=== PATIENT | female | born 1995 | race African-American/Black ===

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

== ENCOUNTER 2017-06-12 04:45 | Emergency (ER) | payer OTHER ==
[2017-06-12] MEDS ORDERED: IBUPROFEN 400 MG TABLET. PO ×2 (05:20→05:30)
[2017-06-12] MEDS: ONDANSETRON ODT 4 MG TAB.RAPDIS. PO (05:24)
[2017-06-12] MEDS ORDERED: CEPHALEXIN 250 MG CAPSULE. PO (05:30)
[2017-06-12] MEDS ORDERED: IBUPROFEN 800 MG TABLET. PO (05:30)
[2017-06-12] MEDS ORDERED: PENICILLIN G BENZATHINE LA 1,200,000 UNIT/2 ML DISP.SYRIN. IM (06:00)
[2017-06-13 07:11] LABS: URINE HCG POC HCG NEGATIVE (Negative)
== END 2017-06-12 05:30 | disposition home or self-care (01) ==
LOC: ER 04:45
DX: B34.9 Viral infection, unspecified (principal); J40 Bronchitis, not specified as acute or chronic; Z88.6 Allergy status to analgesic agent
CPT/HCPCS: 81025; 99283; Q0162

== ENCOUNTER 2017-09-22 09:49 | Emergency (ER) | payer OTHER | END 2017-09-22 10:11 | disposition left against medical advice (07) | LOC: ER 09:49 | DX: R10.30 Lower abdominal pain, unspecified (principal); O26.891 Other specified pregnancy related conditions, first trimester; O46.91 Antepartum hemorrhage, unspecified, first trimester; Z88.5 Allergy status to narcotic agent | CPT/HCPCS: 99283 ==

== ENCOUNTER 2018-05-10 19:45 | Emergency (ER) | payer OTHER ==
[~2018-05-10] VITALS: Ht 160 cm; Wt 68.0 kg
[~2018-05-10 19:45] MED LIST changes: +CEPH-264 PO; -CITA20TA5 PO; +CITA20TA6 PO; +ONDA4TAB10 PO; +OXYC5CAP PO; -OXYC5CAP3 PO; -TRAM-29 PO; +TRAM-48 PO
[2018-05-10 19:55] VITALS: BP 127/85
[2018-05-10 20:17] LABS: BILIRUBIN,URINE SMALL (NEG); CLARITY,URINE CLEAR; COLOR,URINE YELLOW; NITRITE,URINE NEGATIVE (NEG); PROTEIN,URINE NEGATIVE (NEG-TRACE)
[2018-05-10 20:23] LABS: BACTERIA,URINE FEW /HPF (0-FEW); RBC,URINE 0 /HPF (0-2); SQUAMOUS EPITHELIAL CELL,UR MANY /LPF
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
[2018-05-10] MEDS ORDERED: NAPR-514 PO (21:41)
[2018-05-10] MEDS ORDERED: CYCL10TA2 PO (21:41)
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
[2018-05-13] MEDS ORDERED: ONDA4TAB12 PO (16:11)
== END 2018-05-10 21:45 | disposition home or self-care (01) ==
LOC: ER 19:45
DX: M54.5 Low back pain (principal); M79.604 Pain in right leg; G89.11 Acute pain due to trauma; F41.9 Anxiety disorder, unspecified; Z88.6 Allergy status to analgesic agent; V49.88XA Car occupant (driver) (passenger) injured in other specified transport accidents, initial encounter; Y93.89 Activity, other specified; Y92.488 Other paved roadways as the place of occurrence of the external cause; Y99.8 Other external cause status
CPT/HCPCS: 72100; 81001; 81025; 99284

== ENCOUNTER 2018-05-19 08:29 | Emergency (ER) | payer OTHER ==
[~2018-05-19] VITALS: Ht 160 cm; Wt 69.9 kg
[~2018-05-19 08:29] MED LIST changes: +CYCL10TA2 PO; +NAPR-514 PO; +ONDA4TAB12 PO
[2018-05-19 08:42] VITALS: BP 123/58
[2018-05-19 09:18] LABS: BILIRUBIN,URINE NEGATIVE (NEG); CLARITY,URINE CLEAR; COLOR,URINE YELLOW; NITRITE,URINE POSITIVE (NEG); PROTEIN,URINE NEGATIVE (NEG-TRACE)
--- NOTE | 2018-05-19 09:18 | PHYS DOC ---
Past Medical History Past Medical History: Anxiety, Other Additional Past Medical Histor: PRE-ECLAMPSIA Past Surgical History: No Surgical History Smoking: Cigarettes Alcohol Use: None Drug Use: None Adult General Chief Complaint Chief Complaint: VAGINAL PROBLEM HPI HPI 23-year-old female presenting to the emergency department today with vaginal discharge and possible exposure to STD. She has mild suprapubic abdominal pain that radiates into the flanks. More on the right than left. It is a sharp shooting pain that is mild and without alleviating factors. It is been present for about 2-3 days. She denies dyspareunia or vaginal bleeding. She is unsure whether she is . Review of systems is negative for chest pain shortness of breath fevers or chills. All other review of systems is negative unless otherwise noted in history of present illness. ED course: 23-year-old female presenting to the emergency department today with vaginal discharge. On arrival she is afebrile with a normal heart rate. She is well-appearing on examination her abdomen is soft and nontender. Mild CVA tenderness. Negative McBurney's point. Negative Benitez sign. Vaginal exam performed in the presence of a female nurse shows white discharge. No cervical motion tenderness. Cervix is difficult to visualize due to the discharge. No adnexal fullness or masses. Urine obtained along with test. Wet prep sent. The patient will need to follow-up with her doctor to get gonorrhea and chlamydia testing along with syphilis and HIV. UTI present. wet prep pos for bv. I will initiate abx therapy for treatment of std exposure, pyleo and bv. The patient has been examined and was not found to have an emergency medical condition. The patient was then discharged home in stable condition to follow up with their primary care physician over the next 2-3 days. They were to return if their symptoms worsened or if they were concerned for any reason. They were also instructed to return to the emergency department if they were unable to get the recommended and appropriate follow-up. [id number] discharge instructions and return precautions were given. Patient's questions were answered to their satisfaction. Patient is comfortable with plan. Review of Systems Review of Systems SEE ABOVE. Current Medications Current Medications Current Medications Medications (Trade) Dose Ordered Sig/Otilio Start Time Stop Time Status Last Admin Dose Admin Azithromycin (Zithromax) 1,000 mg 1X ONCE 05/19/18 10:00 05/19/18 10:01 Ceftriaxone Sodium (Rocephin) 1 gm 1X ONCE 05/19/18 10:00 05/19/18 10:01 Metronidazole (Flagyl) 500 mg 1X ONCE 05/19/18 09:30 05/19/18 09:32 DC 05/19/18 09:45 500 MG Allergies Allergies Allergies Coded Allergies Type Severity Reaction Last Updated Verified acetaminophen Allergy Intermediate RASH 07/04/16 Yes Physical Exam Physical Exam SEE ABOVE Constitutional: Well developed, well nourished, no acute distress, non-toxic appearance. [] HENT: Normocephalic, atraumatic, bilateral external ears normal, oropharynx moist, no oral exudates, nose normal. [] Eyes: PERRLA, EOMI, conjunctiva normal, no discharge. [] Neck: Normal range of motion, no tenderness, supple, no stridor. [] Cardiovascular:Heart rate regular rhythm, no murmur [] Lungs & Thorax: Bilateral breath sounds clear to auscultation [] Abdomen: Bowel sounds normal, soft, no tenderness, no masses, no pulsatile masses. [] Skin: Warm, dry, no erythema, no rash. [] Back: No tenderness, no CVA tenderness. [] Extremities: No tenderness, no cyanosis, no clubbing, ROM intact, no edema. [] Neurologic: Alert and oriented X 3, normal motor function, normal sensory function, no focal deficits noted. [] Psychologic: Affect normal, judgement normal, mood normal. [] Current Patient Data Vital Signs Vital Signs Date Time Temp Pulse Resp B/P (MAP) Pulse Ox O2 Delivery O2 Flow Rate FiO2 05/19/18 08:42 97.7 70 16 123/58 (79) 99 Room Air 97.7 Lab Values Laboratory Tests Test 05/19/18 08:39 05/19/18 08:45 Urine Collection Type Unknown Urine Color Yellow Urine Clarity Clear Urine pH 6.[address] [place] >=1.030 Urine Protein Negative mg/dL (NEG-TRACE) Urine Glucose (UA) Negative mg/dL (NEG) Urine Ketones (Stick) Negative mg/dL (NEG) Urine Blood Negative (NEG) Urine Nitrite Positive (NEG) Urine Bilirubin Negative (NEG) Urine Urobilinogen Dipstick 1.0 mg/dL (0.2 mg/dL) Urine Leukocyte Esterase Small (NEG) Urine RBC 0 /HPF (0-2) Urine WBC 11-20 /HPF (0-4) Urine Squamous Epithelial Cells Few /LPF Urine Bacteria Many /HPF (0-FEW) Urine Mucus Slight /LPF POC Urine HCG, Qualitative Hcg negative (Negative) Microbiology 05/19/18 Wet Prep - Final, Complete EKG EKG [] Radiology/Procedures Radiology/Procedures [] Course & Med Decision Making Course & Med Decision Making Pertinent Labs and Imaging studies reviewed. (See chart for details) [] Dragon Disclaimer Dragon Disclaimer This electronic medical record was generated, in whole or in part, using a voice recognition dictation system. Departure Departure Impression: Primary Impression: Pyelonephritis Additional Impressions: Possible exposure to STD BV (bacterial vaginosis) Disposition: 01 HOME, SELF-CARE Condition: STABLE Referrals: NO PCP (PCP) DENNIS MCKENNA MD Patient Instructions: Pyelonephritis, Adult, [id number], Safe Sex, Sexually Transmitted Disease Additional Instructions: Thank you for allowing us to participate in your care today. Return to the emergency department you have any new or worsening symptoms, or if you are concerned for any reason. Return to emergency department if you have any new or concerning symptoms including but not limited to fever, chills, nausea, vomiting, intractable pain, any new rashes, chest pain, shortness of air , uncontrolled bleeding, difficulty breathing, and/or vision loss. Follow up with your primary care physician within 1-2 days. Call your Primary Doctor tomorrow and inform them of your visit today. If you do not have a primary care provider we are happy to provide you with a list of our primary care providers contact information. This condition should be evaluated by your primary care physician and any recommended consulting services for continued management within 2 days after discharge. If at any time, you are having difficulty getting into your primary care doctor or a specialist, return to the emergency department. Scripts Metronidazole (FLAGYL) 500 Mg Tablet 1 TAB PO BID, #13 TAB Prov: JASS BARRERA MD 05/19/18 Sulfamethoxazole/Trimethoprim (BACTRIM DS TABLET) 1 Each Tablet 1 TAB PO BID, #20 TAB Prov: JASS BARRERA MD 05/19/18 Problem Qualifiers JASS BARRERA MD May 19, 2018 09:18
[2018-05-19] MEDS ORDERED: metroNIDAZOLE 500 MG TABLET PO ONE (09:30)
[2018-05-19 09:43] LABS: BACTERIA,URINE MANY /HPF (0-FEW); RBC,URINE 0 /HPF (0-2); SQUAMOUS EPITHELIAL CELL,UR FEW /LPF
[2018-05-19] MEDS ORDERED: AZITHROMYCIN 250 MG TABLET. PO ONE (10:00)
[2018-05-19] MEDS ORDERED: cefTRIAXone IV Push 1 GM VIAL. IVP ONE (10:00)
[2018-05-19] MEDS ORDERED: SULF1TAB24 PO (10:03)
[2018-05-19] MEDS ORDERED: METR500T PO (10:05)
[2018-05-19] MEDS ORDERED: cefTRIAXone IM 1 GM VIAL IM ONE (10:15)
== END 2018-05-19 10:28 | disposition home or self-care (01) ==
LOC: ER 08:29
DX: N76.0 Acute vaginitis (principal); B96.89 Other specified bacterial agents as the cause of diseases classified elsewhere; N12 Tubulo-interstitial nephritis, not specified as acute or chronic; F17.210 Nicotine dependence, cigarettes, uncomplicated; Z88.6 Allergy status to analgesic agent
CPT/HCPCS: 81001; 81025; 96372; 99283; J0696; Q0111; Q0144; 87086

== ENCOUNTER 2018-07-14 14:47 | Emergency (ER) | payer MEDICAID, OTHER ==
[~2018-07-14] VITALS: Ht 160 cm; Wt 70.8 kg
[~2018-07-14 14:47] MED LIST changes: +SULF1TAB24 PO
[2018-07-14] MEDS ORDERED: IV NORMAL SALINE 1000ML BAG 1,000 ML IV SCH (14:57)
[2018-07-14] MEDS ORDERED: FAMOTIDINE 20 MG/2 ML VIAL IVP ONE (15:00)
[2018-07-14] MEDS ORDERED: AZITHROMYCIN 250 MG TABLET. PO ONE (15:00)
[2018-07-14] MEDS ORDERED: cefTRIAXone IM 250 MG VIAL IM ONE (15:00)
[2018-07-14] MEDS ORDERED: ONDANSETRON PF 4 MG/2 ML VIAL. IV ONE ×2 (15:00→18:00)
--- NOTE | 2018-07-14 15:08 | PHYS DOC ---
Past Medical History Past Medical History: Hypertension, UTI Additional Past Medical Histor: PRE-ECLAMPSIA Past Surgical History: No Surgical History Alcohol Use: Occasionally Additional Information: weekends/social Drug Use: None Adult General Chief Complaint Chief Complaint: ABDOMINAL PAIN HPI HPI Patient is a 23 year old female who presents with nausea, vomiting, generalized abdominal pain, body aches for the last 3 days. Patient states she can't keep anything down even fluids. Patient states she was also recently diagnosed with a bacterial vaginal infection. Patient states she was unable to keep the antibiotics down and would like another pelvic exam to be swabbed for both bacterial infection and sexually transmitted diseases. Patient states she is also like to be treated for sexually transmitted diseases. Review of Systems Review of Systems Constitutional: Denies fever or chills [] Eyes: Denies change in visual acuity, redness, or eye pain [] HENT: Denies nasal congestion or sore throat [] Respiratory: Denies cough or shortness of breath [] Cardiovascular: No additional information not addressed in HPI [] GI: abdominal pain, nausea, vomiting, denies bloody stools or diarrhea [] : Denies dysuria or hematuria [] Musculoskeletal: Denies back pain or joint pain [] Integument: Denies rash or skin lesions [] Neurologic: Denies headache, focal weakness or sensory changes [] Endocrine: Denies polyuria or polydipsia [] All other systems were reviewed and found to be within normal limits, except as documented in this note. Current Medications Current Medications Current Medications Medications (Trade) Dose Ordered Sig/Otilio Start Time Stop Time Status Last Admin Dose Admin Azithromycin (Zithromax) 1,000 mg 1X ONCE 07/14/18 15:00 07/14/18 15:09 DC 07/14/18 15:44 1,000 MG Ceftriaxone Sodium (Rocephin Im) 250 mg 1X ONCE 07/14/18 15:00 07/14/18 15:09 DC 07/14/18 15:42 250 MG Famotidine (Pepcid Vial) 20 mg 1X ONCE 07/14/18 15:00 07/14/18 15:09 DC 07/14/18 15:43 20 MG Fentanyl Citrate (Fentanyl 2ml Vial) 50 mcg 1X ONCE 07/14/18 15:15 07/14/18 15:16 DC 07/14/18 15:43 50 MCG Info (CONTRAST GIVEN -- Rx MONITORING) 1 each PRN DAILY PRN 07/14/18 16:15 07/16/18 16:14 Iohexol (Omnipaque 300 Mg/ml) 75 ml 1X ONCE 07/14/18 16:15 07/14/18 16:16 DC Metoclopramide HCl (Reglan Vial) 10 mg 1X ONCE 07/14/18 19:15 07/14/18 19:16 UNV Ondansetron HCl (Zofran) 4 mg 1X ONCE 07/14/18 18:00 07/14/18 18:01 DC 07/14/18 17:38 4 MG Sodium Chloride 1,000 ml @ 1,000 mls/hr 1X ONCE 07/14/18 17:00 07/14/18 17:59 DC 07/14/18 17:16 1,000 MLS/HR Allergies Allergies Allergies Coded Allergies Type Severity Reaction Last Updated Verified acetaminophen Allergy Intermediate RASH 07/04/16 Yes Physical Exam Physical Exam Constitutional: Well developed, well nourished, no acute distress, non-toxic appearance. [] HENT: Normocephalic, atraumatic, bilateral external ears normal, oropharynx moist, no oral exudates, nose normal. [] Eyes: PERRLA, EOMI, conjunctiva normal, no discharge. [] Neck: Normal range of motion, no tenderness, supple, no stridor. [] Cardiovascular:Heart rate regular rhythm, no murmur [] Lungs & Thorax: Bilateral breath sounds clear to auscultation [] Abdomen: Bowel sounds normal, soft, no tenderness, no masses, no pulsatile masses. [] Skin: Warm, dry, no erythema, no rash. [] Back: No tenderness, no CVA tenderness. [] Extremities: No tenderness, no cyanosis, no clubbing, ROM intact, no edema. [] Neurologic: Alert and oriented X 3, normal motor function, normal sensory function, no focal deficits noted. [] Psychologic: Affect normal, judgement normal, mood normal. [] Current Patient Data Vital Signs Vital Signs Date Time Temp Pulse Resp B/P (MAP) Pulse Ox O2 Delivery O2 Flow Rate FiO2 07/14/18 16:42 98.3 91 18 141/72 (95) 98 Room Air 98.3 Lab Values Laboratory Tests Test 07/14/18 15:20 07/14/18 16:00 2/8/19 16:10 Urine Collection Type Unknown Urine Color Raquel Urine Clarity Cloudy Urine pH 6.0 Urine Specific [place] >=1.030 Urine Protein 100 mg/dL (NEG-TRACE) Urine Glucose (UA) Negative mg/dL (NEG) Urine Ketones (Stick) >=80 mg/dL (NEG) Urine Blood Negative (NEG) Urine Nitrite Negative (NEG) Urine Bilirubin Negative (NEG) Urine Urobilinogen Dipstick 0.2 mg/dL (0.2 mg/dL) Urine Leukocyte Esterase Small (NEG) Urine RBC 3-5 /HPF (0-2) Urine WBC 5-10 /HPF (0-4) Urine Squamous Epithelial Cells Many /LPF Urine Bacteria Moderate /HPF (0-FEW) Urine Mucus Marked /LPF POC Urine HCG, Qualitative Hcg positive (Negative) White Blood Count 9.7 x10^3/uL (4.0-11.0) Red Blood Count 4.75 x10^6/uL (3.50-5.40) Hemoglobin 13.4 g/dL (12.0-15.5) Hematocrit 40.5 % (36.0-47.0) Mean Corpuscular Volume 85 fL (79-100) Mean Corpuscular Hemoglobin 28 pg (25-35) Mean Corpuscular Hemoglobin Concent 33 g/dL (31-37) Red Cell Distribution Width 14.2 % (11.5-14.5) Platelet Count 281 x10^3/uL (140-400) Neutrophils (%) (Auto) 78 % (31-73) H Lymphocytes (%) (Auto) 14 % (24-48) L Monocytes (%) (Auto) 6 % (0-9) Eosinophils (%) (Auto) 0 % (0-3) Basophils (%) (Auto) 1 % (0-3) Neutrophils # (Auto) 7.6 x10^3uL (1.8-7.7) Lymphocytes # (Auto) 1.4 x10^3/uL (1.0-4.8) Monocytes # (Auto) 0.6 x10^3/uL (0.0-1.1) Eosinophils # (Auto) 0.0 x10^3/uL (0.0-0.7) Basophils # (Auto) 0.1 x10^3/uL (0.0-0.2) Maternal Serum HCG Beta Subunit 57047 mIU/mL (0-5) H Sodium Level 137 mmol/L (136-145) Potassium Level 3.5 mmol/L (3.5-5.1) Chloride Level 100 mmol/L (98-107) Carbon Dioxide Level 24 mmol/L (21-32) Anion Gap 13 (6-14) Blood Urea Nitrogen 9 mg/dL (7-20) Creatinine 0.7 mg/dL (0.6-1.0) Estimated GFR (Cockcroft-Gault) 127.8 BUN/Creatinine Ratio 13 (6-20) Glucose Level 77 mg/dL (70-99) Calcium Level 9.1 mg/dL (8.5-10.1) Total Bilirubin 0.9 mg/dL (0.2-1.0) Aspartate Amino Transferase (AST) 16 U/L (15-37) Alanine Aminotransferase (ALT) 20 U/L (14-59) Alkaline Phosphatase 72 U/L (46-116) Total Protein 7.9 g/dL (6.4-8.2) Albumin 4.0 g/dL (3.4-5.0) Albumin/Globulin Ratio 1.0 (1.0-1.7) Lipase 44 U/L (73-393) L Laboratory Tests 07/14/18 16:10 Laboratory Tests 07/14/18 16:10 Microbiology 07/14/18 Wet Prep - Final, Complete Microbiology 07/14/18 Wet Prep - Final, Complete EKG EKG [] Radiology/Procedures Radiology/Procedures OB US Course & Med Decision Making Course & Med Decision Making Patient is a 23 year old female who presents with nausea, vomiting, generalized abdominal pain, body aches for the last 3 days. Patient states she can't keep anything down even fluids. Patient states she was also recently diagnosed with a bacterial vaginal infection. Patient states she was unable to keep the antibiotics down and would like another pelvic exam to be swabbed for both bacterial infection and sexually transmitted diseases. Patient states she is also like to be treated for sexually transmitted diseases. Alert and oriented. Skin pink warm and dry. Mucous membranes are moist. Vital signs are within normal limits. Afebrile. Lungs are clear to auscultation all lobes. Abdomen is soft and nontender. Patient denies any vaginal discharge or bleeding or dysuria. Heart rate regular without murmur. She denies any other cold symptoms such as cough, diarrhea, fever, nasal congestion or being around any dialysis been sick. Patient is ambulatory with a steady gait. Patient speaks in full clear sentences. Urine hCG positive. Patient is swabbed for gonorrhea and chlamydia is sent off. Patient is treated for gonorrhea and chlamydia in the ED. Patient vomited up the Zithromax. Patient is given another 4 of Zofran. She will not be given more Zithromax because I cannot be sure how much she absorbed. Patient is told she will be called for positive findings only. Ultrasound report is reported to me as a viable 6 week 3 day with a heart rate of 113 and a left ovarian cyst. Patient is to follow-up with an [facility] doctor as soon as possible. Take Zofran as prescribed. Drink plenty of fluids. Pelvic Exam: Log Cutter present Abdomen: Nontender External Genitalia: Normal Skin Speculum: Normal vaginal mucosa, white cervical discharge Bimanual: No adnexal masses or tenderness, No CMT Dragon Disclaimer Dragon Disclaimer This electronic medical record was generated, in whole or in part, using a voice recognition dictation system. Departure Departure Impression: Primary Impression: Positive test Additional Impressions: Nausea Vomiting during Disposition: 01 HOME, SELF-CARE Condition: STABLE Referrals: NO PCP (PCP) EARLINE CORNEJO Jr, MD Patient Instructions: ABCs of , Nausea and Vomiting Additional Instructions: 6 weeks 3 days . 113 heart rate. Follow-up with an OB doctor as soon as possible. Take medication as prescribed. Scripts Ondansetron (ONDANSETRON ODT) 4 Mg Tab.rapdis 1 TAB PO PRN Q6-8HRS, #20 TAB Prov: ANA PAEZ APRN 07/14/18 Problem Qualifiers ANA PAEZ APRN Jul 14, 2018 15:08
[2018-07-14] MEDS ORDERED: fentaNYL PF VIAL 100 MCG/2 ML VIAL IV ONE (15:15)
[2018-07-14 16:12] LABS: BILIRUBIN,URINE NEGATIVE (NEG); CLARITY,URINE CLOUDY; COLOR,URINE AMBER; NITRITE,URINE NEGATIVE (NEG); PROTEIN,URINE 100 mg/dL (NEG-TRACE); UROBILINOGEN,URINE 0.2 mg/dL (0.2 mg/dL)
[2018-07-14] MEDS ORDERED: CONTRAST GIVEN. MC PRN (16:15)
[2018-07-14] MEDS ORDERED: IOHEXOL 300 MG/ML 100ML VIAL. IV ONE (16:15)
[2018-07-14 16:19] LABS: BASO # 0.1 x10^3/uL (0.0-0.2); BASO % 1 % (0-3); EOS % 0 % (0-3); HEMATOCRIT 40.5 % (36.0-47.0); HEMOGLOBIN 13.4 g/dL (12.0-15.5); LYMPH # 1.4 x10^3/uL (1.0-4.8); LYMPH % 14 % (24-48); MEAN CORPUSCULAR HEMOGLOBIN 28 pg (25-35); MEAN CORPUSCULAR HGB CONC 33 g/dL (31-37); MEAN CORPUSCULAR VOLUME 85 fL (79-100); MONO # 0.6 x10^3/uL (0.0-1.1); MONO % 6 % (0-9); NEUT # 7.6 x10^3uL (1.8-7.7); NEUT % 78 % (31-73); PLATELET COUNT 281 x10^3/uL (140-400); RED BLOOD COUNT 4.75 x10^6/uL (3.50-5.40); RED CELL DISTRIBUTION WIDTH 14.2 % (11.5-14.5); WHITE BLOOD COUNT 9.7 x10^3/uL (4.0-11.0)
[2018-07-14 16:20] LABS: SQUAMOUS EPITHELIAL CELL,UR MANY /LPF
[2018-07-14 16:22] LABS: BACTERIA,URINE MODERATE /HPF (0-FEW)
[2018-07-14 16:36] LABS: CALCIUM 9.1 mg/dL (8.5-10.1); CREATININE 0.7 mg/dL (0.6-1.0); GFR 127.8; POTASSIUM 3.5 mmol/L (3.5-5.1)
[2018-07-14 16:42] VITALS: BP 141/72
[2018-07-14 16:42] LABS: TOTAL BILIRUBIN 0.9 mg/dL (0.2-1.0); TOTAL PROTEIN 7.9 g/dL (6.4-8.2)
[2018-07-14] MEDS ORDERED: IV NORMAL SALINE 1000ML BAG 1,000 ML IV ONE (17:00)
[2018-07-14] MEDS ORDERED: ONDA4TAB12 PO (17:37)
[2018-07-14] MEDS ORDERED: METOCLOPRAMIDE HCL 10 MG/2 ML VIAL. ONE (19:15)
[2018-07-14] MEDS ORDERED: METOCLOPRAMIDE HCL 10 MG/2 ML VIAL. IV ONE (19:15)
[2018-07-17 13:19] LABS: GC PROBE Negative (Negative)
--- NOTE | 2018-07-17 16:12 | RAD ---
EXAM: Obstetrics sonogram. HISTORY: Vaginal spotting. TECHNIQUE: Sonographic imaging of the pelvis was performed. COMPARISON: None. FINDINGS: The uterus is normal in size. There is a single intrauterine gestational sac with pole and yolk sac. The crown-rump length is 0.65 cm, corresponding with 6 weeks and 3 days. The estimated due date based on ultrasound measurements is 03/07/2019. The heart rate is 113 bpm. The ovaries are normal in size and demonstrate normal blood flow. There is a 2.3 cm complex left ovarian cyst. There is no pelvic free fluid. The gestational sac is normal in location and configuration. IMPRESSION: 1. Single intrauterine fetus with an estimated gestational age of 6 weeks and 3 days and heart rate of 113 bpm. 2. 2.3 cm complex left ovarian cyst, possibly a hemorrhagic cyst. Electronically signed by: Emely Kenyon MD (07/17/2018 4:07 PM) [id number]
== END 2018-07-14 19:35 | disposition home or self-care (01) ==
LOC: ER 14:47
DX: Z33.1 Pregnant state, incidental (principal); R10.84 Generalized abdominal pain; R11.2 Nausea with vomiting, unspecified; M79.10 Myalgia, unspecified site; I10 Essential (primary) hypertension; Z87.440 Personal history of urinary (tract) infections; Z88.6 Allergy status to analgesic agent
CPT/HCPCS: 36415; 76801; 76817; 80053; 81001; 81025; 83690; 84702; 85025; 86850; 86900; 86901; 87086; 87491; 87591; 96361; 96372; 96374; 96375; 96376; 99284; J0696; J2405; J2765; J3010; J3490; J7030; Q0111; Q0144

== ENCOUNTER 2018-07-17 23:55 | Emergency (ER) | payer OTHER ==
[2018-07-18] MEDS ORDERED: DICYCLOMINE HCL 10 MG CAPSULE ONE (02:19)
[2018-07-18] MEDS ORDERED: METOCLOPRAMIDE HCL 10 MG/2 ML VIAL. ONE (02:19)
[2018-07-18 07:12] LABS: ALBUMIN 3.5 g/dL (3.4-5.0); CALCIUM 8.5 mg/dL (8.5-10.1); CREATININE 0.7 mg/dL (0.6-1.0); DIRECT BILIRUBIN 0.1 mg/dL (0.0-0.2); GFR 127.8; POTASSIUM 3.2 mmol/L (3.5-5.1); TOTAL BILIRUBIN 0.4 mg/dL (0.2-1.0); TOTAL PROTEIN 6.8 g/dL (6.4-8.2)
[2018-07-18 07:25] LABS: BASO # 0.1 x10^3/uL (0.0-0.2); BASO % 1 % (0-3); EOS # 0.3 x10^3/uL (0.0-0.7); EOS % 3 % (0-3); HEMATOCRIT 36.6 % (36.0-47.0); HEMOGLOBIN 12.2 g/dL (12.0-15.5); LYMPH % 29 % (24-48); MEAN CORPUSCULAR HEMOGLOBIN 28 pg (25-35); MEAN CORPUSCULAR HGB CONC 33 g/dL (31-37); MEAN CORPUSCULAR VOLUME 85 fL (79-100); MONO # 0.7 x10^3/uL (0.0-1.1); MONO % 7 % (0-9); NEUT # 6.4 x10^3uL (1.8-7.7); NEUT % 61 % (31-73); PLATELET COUNT 252 x10^3/uL (140-400); RED BLOOD COUNT 4.33 x10^6/uL (3.50-5.40); RED CELL DISTRIBUTION WIDTH 14.4 % (11.5-14.5); WHITE BLOOD COUNT 10.6 x10^3/uL (4.0-11.0)
[2018-07-18 07:42] LABS: BILIRUBIN,URINE NEGATIVE (NEG); CLARITY,URINE CLEAR; COLOR,URINE YELLOW; NITRITE,URINE NEGATIVE (NEG); PH,URINE 6.5; PROTEIN,URINE NEGATIVE (NEG-TRACE)
[2018-07-18 07:44] LABS: BACTERIA,URINE MANY /HPF (0-FEW); RBC,URINE OCC /HPF (0-2); SQUAMOUS EPITHELIAL CELL,UR MANY /LPF; YEAST,URINE PRESENT /HPF
== END 2018-07-18 02:45 | disposition left against medical advice (07) ==
LOC: ER 23:55
DX: O21.9 Vomiting of pregnancy, unspecified (principal); R10.10 Upper abdominal pain, unspecified; O16.1 Unspecified maternal hypertension, first trimester; O23.41 Unspecified infection of urinary tract in pregnancy, first trimester; O99.331 Smoking (tobacco) complicating pregnancy, first trimester; Z3A.01 Less than 8 weeks gestation of pregnancy
CPT/HCPCS: 36415; 80048; 80076; 81001; 81025; 85025; 87086; 96374; 99283-25

== ENCOUNTER 2018-08-11 12:08 | Emergency (ER) | payer OTHER ==
[~2018-08-11] VITALS: Ht 160 cm; Wt 69.9 kg
[2018-08-11] MEDS ORDERED: ONDANSETRON ODT 4 MG TAB.RAPDIS. PO ONE (12:30)
[2018-08-11] MEDS ORDERED: IV NORMAL SALINE 1000ML BAG 1,000 ML IV ONE ×2 (12:30→15:00)
[2018-08-11] MEDS ORDERED: ONDANSETRON PF 4 MG/2 ML VIAL. IM ONE (12:30)
[2018-08-11] MEDS ORDERED: ONDANSETRON PF 4 MG/2 ML VIAL. ONE (12:32)
[2018-08-11] MEDS ORDERED: ONDANSETRON PF 4 MG/2 ML VIAL. IV ONE (12:45)
[2018-08-11 12:48] LABS: BASO # 0.1 x10^3/uL (0.0-0.2); BASO % 1 % (0-3); EOS % 1 % (0-3); HEMATOCRIT 39.7 % (36.0-47.0); HEMOGLOBIN 13.1 g/dL (12.0-15.5); LYMPH # 2.6 x10^3/uL (1.0-4.8); LYMPH % 27 % (24-48); MEAN CORPUSCULAR HEMOGLOBIN 28 pg (25-35); MEAN CORPUSCULAR HGB CONC 33 g/dL (31-37); MEAN CORPUSCULAR VOLUME 84 fL (79-100); MONO # 0.6 x10^3/uL (0.0-1.1); MONO % 6 % (0-9); NEUT # 6.2 x10^3uL (1.8-7.7); NEUT % 65 % (31-73); PLATELET COUNT 312 x10^3/uL (140-400); RED BLOOD COUNT 4.71 x10^6/uL (3.50-5.40); RED CELL DISTRIBUTION WIDTH 15.1 % (11.5-14.5); WHITE BLOOD COUNT 9.6 x10^3/uL (4.0-11.0)
[2018-08-11 13:02] LABS: CALCIUM 9.2 mg/dL (8.5-10.1); CREATININE 0.6 mg/dL (0.6-1.0); GFR 152.7; POTASSIUM 3.2 mmol/L (3.5-5.1)
[2018-08-11 13:08] LABS: ALBUMIN 3.7 g/dL (3.4-5.0); ALBUMIN/GLOBULIN RATIO 0.9 (1.0-1.7); TOTAL BILIRUBIN 1.2 mg/dL (0.2-1.0); TOTAL PROTEIN 7.7 g/dL (6.4-8.2)
[2018-08-11 14:22] LABS: BILIRUBIN,URINE SMALL (NEG); CLARITY,URINE CLEAR; COLOR,URINE AMBER; NITRITE,URINE NEGATIVE (NEG); PROTEIN,URINE 100 mg/dL (NEG-TRACE)
[2018-08-11 14:26] LABS: BARBITURATES NEG (NEG); BENZODIAZEPINES NEG (NEG); CANNABINOIDS NEG (NEG); COCAINE NEG (NEG); METHADONE NEG (NEG); OPIATES NEG (NEG); PHENCYCLIDINE NEG (NEG)
[2018-08-11 14:27] LABS: AMPHETAMINE/METHAMPHETAMINE NEG (NEG)
[2018-08-11 14:37] LABS: SQUAMOUS EPITHELIAL CELL,UR MANY /LPF
[2018-08-11 14:38] LABS: BACTERIA,URINE MODERATE /HPF (0-FEW)
[2018-08-11] MEDS ORDERED: POTASSIUM CHLORIDE 20 MEQ TABLET.ER. PO ONE (15:00)
[2018-08-11] MEDS ORDERED: PROCHLORPERAZINE 10 MG/2 ML VIAL. IV ONE (15:30)
[2018-08-11] MEDS ORDERED: POTASSIUM CHLORIDE 20 MEQ/15 ML ORAL LIQUID. PO ONE (16:00)
[2018-08-11] MEDS ORDERED: PROC10TA57 PO (16:27)
--- NOTE | 2018-08-11 16:28 | PHYS DOC ---
Past Medical History Past Medical History: Hypertension, UTI Additional Past Medical Histor: PRE-ECLAMPSIA Past Surgical History: No Surgical History Alcohol Use: Occasionally Additional Information: no alcohol since being Drug Use: None Adult General Chief Complaint Chief Complaint: VOMITING IN HPI HPI Patient is a 23 year old female 4 para 3 currently 11 weeks who presents to the ED today complaining of nausea vomiting that has been going on for 2-3 weeks. Patient states she's been seen in the ED before, was given Zofran, symptoms did not improve. Patient denies any abdominal pain. Denies any urgency frequency dysuria. Denies any vaginal bleeding. She states she has an appointment with her SPRING FITTER on 31 August 2018 Review of Systems Review of Systems Constitutional: Denies fever or chills [] Eyes: Denies change in visual acuity, redness, or eye pain [] HENT: Denies nasal congestion or sore throat [] Respiratory: Denies cough or shortness of breath [] Cardiovascular: No additional information not addressed in HPI [] GI: Reports nausea and vomiting in , denies abdominal pain, bloody stools or diarrhea [] : Denies dysuria or hematuria [] Musculoskeletal: Denies back pain or joint pain [] Integument: Denies rash or skin lesions [] Neurologic: Denies headache, focal weakness or sensory changes [] All other systems were reviewed and found to be within normal limits, except as documented in this note. Current Medications Current Medications Current Medications Medications (Trade) Dose Ordered Sig/Otilio Start Time Stop Time Status Last Admin Dose Admin Ondansetron HCl (Zofran Odt) 4 mg 1X ONCE 08/11/18 12:30 08/11/18 12:30 DC Ondansetron HCl (Zofran) 4 mg 1X ONCE 08/11/18 12:45 08/11/18 12:46 DC 08/11/18 12:39 4 MG Potassium Chloride (KCl Oral Soln) 40 meq 1X ONCE 08/11/18 16:00 08/11/18 16:01 DC 08/11/18 16:02 40 MEQ Potassium Chloride (Klor-Con) 40 meq 1X ONCE 08/11/18 15:00 08/11/18 15:01 DC Prochlorperazine Edisylate (Compazine) 10 mg 1X ONCE 08/11/18 15:30 08/11/18 15:31 DC 08/11/18 15:38 10 MG Sodium Chloride 1,000 ml @ 1,000 mls/hr 1X ONCE 08/11/18 15:00 08/11/18 15:59 DC 08/11/18 15:34 1,000 MLS/HR Allergies Allergies Allergies Coded Allergies Type Severity Reaction Last Updated Verified acetaminophen Allergy Intermediate RASH 07/04/16 Yes Physical Exam Physical Exam Constitutional: Well developed, well nourished, no acute distress, non-toxic appearance. [] HENT: Normocephalic, atraumatic, bilateral external ears normal, oropharynx moist, no oral exudates, nose normal. [] Eyes: PERRLA, EOMI, conjunctiva normal, no discharge. [] Neck: Normal range of motion, no tenderness, supple, no stridor. [] Cardiovascular:Heart rate regular rhythm, no murmur [] Lungs & Thorax: Bilateral breath sounds clear to auscultation [] Abdomen: Patient is actively vomiting. Bowel sounds normal, soft, no tenderness , no masses, no pulsatile masses. [] Skin: Warm, dry, no erythema, no rash. [] Back: No tenderness, no CVA tenderness. [] Extremities: No tenderness, no cyanosis, no clubbing, ROM intact, no edema. [] Neurologic: Alert and oriented X 3, normal motor function, normal sensory function, no focal deficits noted. [] Psychologic: Affect normal, judgement normal, mood normal. [] Current Patient Data Vital Signs Vital Signs Date Time Temp Pulse Resp B/P (MAP) Pulse Ox O2 Delivery O2 Flow Rate FiO2 08/11/18 13:52 82 18 148/72 (97) 99 Room Air 08/11/18 12:10 98.7 98.7 Lab Values Laboratory Tests Test 08/11/18 12:20 08/11/18 14:00 White Blood Count 9.6 x10^3/uL (4.0-11.0) Red Blood Count 4.71 x10^6/uL (3.50-5.40) Hemoglobin 13.1 g/dL (12.0-15.5) Hematocrit 39.7 % (36.0-47.0) Mean Corpuscular Volume 84 fL (79-100) Mean Corpuscular Hemoglobin 28 pg (25-35) Mean Corpuscular Hemoglobin Concent 33 g/dL (31-37) Red Cell Distribution Width 15.1 % (11.5-14.5) H Platelet Count 312 x10^3/uL (140-400) Neutrophils (%) (Auto) 65 % (31-73) Lymphocytes (%) (Auto) 27 % (24-48) Monocytes (%) (Auto) 6 % (0-9) Eosinophils (%) (Auto) 1 % (0-3) Basophils (%) (Auto) 1 % (0-3) Neutrophils # (Auto) 6.2 x10^3uL (1.8-7.7) Lymphocytes # (Auto) 2.6 x10^3/uL (1.0-4.8) Monocytes # (Auto) 0.6 x10^3/uL (0.0-1.1) Eosinophils # (Auto) 0.0 x10^3/uL (0.0-0.7) Basophils # (Auto) 0.1 x10^3/uL (0.0-0.2) Maternal Serum HCG Beta Subunit 088205 mIU/mL (0-5) H Sodium Level 135 mmol/L (136-145) L Potassium Level 3.2 mmol/L (3.5-5.1) L Chloride Level 100 mmol/L (98-107) Carbon Dioxide Level 21 mmol/L (21-32) Anion Gap 14 (6-14) Blood Urea Nitrogen 7 mg/dL (7-20) Creatinine 0.6 mg/dL (0.6-1.0) Estimated GFR (Cockcroft-Gault) 152.7 BUN/Creatinine Ratio 12 (6-20) Glucose Level 86 mg/dL (70-99) Calcium Level 9.2 mg/dL (8.5-10.1) Total Bilirubin 1.2 mg/dL (0.2-1.0) H Aspartate Amino Transferase (AST) 31 U/L (15-37) Alanine Aminotransferase (ALT) 29 U/L (14-59) Alkaline Phosphatase 67 U/L (46-116) Total Protein 7.7 g/dL (6.4-8.2) Albumin 3.7 g/dL (3.4-5.0) Albumin/Globulin Ratio 0.9 (1.0-1.7) L Ethyl Alcohol Level < 10 mg/dL (0-10) Urine Collection Type Unknown Urine Color Raquel Urine Clarity Clear Urine pH 7.0 Urine Specific [place] >=1.030 Urine Protein 100 mg/dL (NEG-TRACE) Urine Glucose (UA) Negative mg/dL (NEG) Urine Ketones (Stick) >=80 mg/dL (NEG) Urine Blood Negative (NEG) Urine Nitrite Negative (NEG) Urine Bilirubin Small (NEG) Urine Urobilinogen Dipstick 1.0 mg/dL (0.2 mg/dL) Urine Leukocyte Esterase Trace (NEG) Urine RBC 3-5 /HPF (0-2) Urine WBC 5-10 /HPF (0-4) Urine Squamous Epithelial Cells Many /LPF Urine Bacteria Moderate /HPF (0-FEW) Urine Mucus Marked /LPF Urine Opiates Screen Neg (NEG) Urine Methadone Screen Neg (NEG) Urine Barbiturates Neg (NEG) Urine Phencyclidine Screen Neg (NEG) Urine Amphetamine/Methamphetamine Neg (NEG) Urine Benzodiazepines Screen Neg (NEG) Urine Cocaine Screen Neg (NEG) Urine Cannabinoids Screen Neg (NEG) Urine Ethyl Alcohol Neg (NEG) Laboratory Tests 08/11/18 12:20 Laboratory Tests 08/11/18 12:20 EKG EKG [] Radiology/Procedures Radiology/Procedures [] Course & Med Decision Making Course & Med Decision Making Pertinent Labs and Imaging studies reviewed. (See chart for details) This is a 23-year-old female patient 4 para 3 currently 11 weeks presenting to the ED today with nausea and vomiting for 2-3 weeks. CBC with no acute findings, CMP with potassium of 3.2, patient was given liquid potassium replacement in the ED. Urine noted for dehydration. Her urine was cultured. She'll be contacted if it grows any infection, her previous culture was negative. Patient was given 1-1/2 L of IV fluid, Zofran and compazine. I went to reevaluate her, she states she is feeling better and would like her IV removed LANEY so she can leave. She was given prescription for Compazine. She has an appointment with her [facility]ING [facility]TER at the end of this month. Nursing staff informs me as soon patient's IV was removed she left the Ed without her RX Dragon Disclaimer Dragon Disclaimer This electronic medical record was generated, in whole or in part, using a voice recognition dictation system. Departure Departure Impression: Primary Impression: Hyperemesis gravidarum Disposition: HOME, SELF-CARE Condition: STABLE Referrals: NO PCP (PCP) BERNY MCKEON MD follow up tomorrow Patient Instructions: Diet - Hyperemesis Gravidarum, Hyperemesis Gravidarum Additional Instructions: You were evaluated for nausea and vomiting in . We put you on medications, take them as prescribed. Push fluids. Follow-up with your [facility]TER tomorrow or Tuesday next week. Scripts Prochlorperazine Maleate (Compazine) 10 Mg Tablet 10 MG PO TID PRN for NAUSEA, #30 TAB Prov: AZRA FINLEY APRN 08/11/18 AZRA FINLEY APRN Aug 11, 2018 16:28
[2018-08-11 16:30] VITALS: BP 140/80
== END 2018-08-11 17:30 | disposition home or self-care (01) ==
LOC: ER 12:08
DX: O21.0 Mild hyperemesis gravidarum (principal); O23.41 Unspecified infection of urinary tract in pregnancy, first trimester; O16.1 Unspecified maternal hypertension, first trimester; Z3A.11 11 weeks gestation of pregnancy; Z88.6 Allergy status to analgesic agent
CPT/HCPCS: 36415; 80053; 80307; 81001; 84702; 85025; 87086; 96361; 96374; 96375; 99283; G0480; J0780; J2405; J7030